=== PATIENT | male | born 2000 | race Caucasian/White ===

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

== ENCOUNTER 2021-09-02 16:47 | Emergency (ER) | payer OTHER ==
[~2021-09-02] VITALS: Ht 170.2 cm; Wt 100.0 kg
[2021-09-02] VITALS (7 sets, daily range): BP systolic 106–125; BP diastolic 43–76
[2021-09-02] MEDS ORDERED: FLEXERIL5 M1 PO (18:46)
[2021-09-02] MEDS ORDERED: IBUPROFEN600 MG PO (18:46)
== END 2021-09-02 19:01 | disposition home or self-care (01) ==
LOC: ED 16:47
DX: S23.3XXA Sprain of ligaments of thoracic spine, initial encounter (principal); X50.0XXA Overexertion from strenuous movement or load, initial encounter

== ENCOUNTER 2021-12-13 05:07 | Emergency (ER) | payer OTHER ==
[~2021-12-13] VITALS: Ht 170.2 cm; Wt 109.0 kg
[~2021-12-13 05:07] MED LIST changes: +FLEXERIL5 M1 PO; +IBUPROFEN600 MG PO
[2021-12-13 05:31] LABS: HEMATOCRIT 46.1 % (39.0-50.0); HEMOGLOBIN 15.4 g/dl (14.0-18.0); IMMATURE GRANULOCYTES 0.9 % (0.0-5.0); MEAN CORPUSCULAR HGB 28.7 pG CALC (26.0-32.0); MEAN CORPUSCULAR HGB CONC 33.4 g/dL CAL (32.0-36.0); NEUT# 8.56 thou/uL (1.82-7.42); RED BLOOD COUNT 5.36 mill/uL (4.70-6.10); RED CELL DISTRI WIDTH 12.9 % (11.5-15.5)
[2021-12-13 05:34] LABS: URINE BILIRUBIN - DIPSTICK NEGATIVE (NEGATIVE); URINE BLOOD DIPSTICK NEGATIVE (NEGATIVE); URINE COLOR YELLOW; URINE GLUCOSE - DIPSTICK NEGATIVE (NEGATIVE); URINE KETONE NEGATIVE (NEGATIVE); URINE LEUK ESTERASE NEGATIVE (NEGATIVE); URINE PH 7.5 (4.5-8.0); URINE PROTEIN - DIPSTICK NEGATIVE (NEG-TRACE); URINE SPECIFIC GRAVITY 1.015; URINE UROBILINOGEN - DIPSTICK 0.2 E.U./dL (0.2)
[2021-12-13 05:39] LABS: URINE NITRITE - DIPSTICK NEGATIVE (Negative)
[2021-12-13 05:48] LABS: ALBUMIN 4.5 g/dL (3.2-5.0); ALKALINE PHOSPHATASE 81 u/l (38-126); ANION GAP 13 (6-22 (CALC)); BILIRUBIN, TOTAL 0.6 mg/dL (0.0-1.4); BUN 19 mg/dL (9-20); BUN/CREATININE RATIO 21 (12-20 (CALC)); CARBON DIOXIDE 25 mmol/l (22-30); CHLORIDE 104 mmol/l (95-108); CREATININE 0.9 mg/dL (0.7-1.3); GFR FOR AFR.AMER. > 60 ML/MIN (>=60 (CALC)); GFR OTHER RACES > 60 ML/MIN (>=60 (CALC)); LIPASE 32 u/l (23-300); MAGNESIUM 2.1 mg/dL (1.6-2.3); SODIUM 139 mmol/l (137-146); TOTAL PROTEIN 7.6 g/dL (6.3-8.2)
[2021-12-13 05:54] LABS: SGOT/AST 96 u/l (17-59)
[2021-12-13] MEDS ORDERED: ZOFRAN4 MG/TAB PO (06:45)
[2021-12-13 06:53] VITALS: BP 112/74
== END 2021-12-13 07:01 | disposition home or self-care (01) ==
LOC: ED 05:07
PROVIDERS: Internal Medicine
DX: R10.13 Epigastric pain (principal); R11.10 Vomiting, unspecified; R74.8 Abnormal levels of other serum enzymes; F31.9 Bipolar disorder, unspecified

== ENCOUNTER 2022-02-27 01:58 | Emergency (ER) | payer OTHER ==
[~2022-02-27] VITALS: Ht 170.2 cm; Wt 109.0 kg
[~2022-02-27 01:58] MED LIST changes: +ZOFRAN4 MG/TAB PO
[2022-02-27] MEDS ORDERED: VOLTAREN75 MG PO (02:15)
[2022-02-27 02:18] VITALS: BP 133/79
== END 2022-02-27 02:32 | disposition home or self-care (01) ==
LOC: ED 01:58
DX: M65.4 Radial styloid tenosynovitis [de Quervain] (principal)

== ENCOUNTER 2022-05-03 05:20 | Emergency (ER) | payer OTHER ==
[~2022-05-03] VITALS: Ht 170.2 cm; Wt 100.0 kg
[~2022-05-03 05:20] MED LIST changes: +VOLTAREN75 MG PO
[2022-05-03 05:41] VITALS: BP 121/78
[2022-05-03 05:46] VITALS: BP 133/67
[2022-05-03 06:01] VITALS: BP 113/55
[2022-05-03 06:39] LABS: URINE BILIRUBIN - DIPSTICK NEGATIVE (NEGATIVE); URINE BLOOD DIPSTICK NEGATIVE (NEGATIVE); URINE COLOR YELLOW; URINE GLUCOSE - DIPSTICK NEGATIVE (NEGATIVE); URINE KETONE NEGATIVE (NEGATIVE); URINE LEUK ESTERASE NEGATIVE (NEGATIVE); URINE PROTEIN - DIPSTICK NEGATIVE (NEG-TRACE); URINE UROBILINOGEN - DIPSTICK 0.2 E.U./dL (0.2)
[2022-05-03 06:40] LABS: URINE NITRITE - DIPSTICK NEGATIVE (Negative)
[2022-05-03 06:45] VITALS: BP 123/82
[2022-05-03 07:33] VITALS: BP 123/82
== END 2022-05-03 07:34 | disposition home or self-care (01) ==
LOC: ED 05:20
PROVIDERS: Emergency Medicine
DX: M47.814 Spondylosis without myelopathy or radiculopathy, thoracic region (principal); M47.816 Spondylosis without myelopathy or radiculopathy, lumbar region; F31.9 Bipolar disorder, unspecified

== ENCOUNTER 2022-07-27 20:05 | Emergency (ER) | payer OTHER ==
[~2022-07-27] VITALS: Ht 170.2 cm; Wt 102.2 kg
[2022-07-27] MEDS ORDERED: VOLTAREN - GENE75 MG PO (21:21)
[2022-07-27 21:25] VITALS: BP 144/75
== END 2022-07-27 21:33 | disposition home or self-care (01) ==
LOC: ED 20:05
DX: S46.911A Strain of unspecified muscle, fascia and tendon at shoulder and upper arm level, right arm, initial encounter (principal); F31.9 Bipolar disorder, unspecified; X50.0XXA Overexertion from strenuous movement or load, initial encounter; Y93.89 Activity, other specified; Y92.89 Other specified places as the place of occurrence of the external cause; Y99.0 Civilian activity done for income or pay

== ENCOUNTER 2022-08-10 06:39 | Emergency (ER) | payer OTHER ==
[~2022-08-10] VITALS: Ht 170.2 cm; Wt 100.0 kg
[~2022-08-10 06:39] MED LIST changes: +VOLTAREN - GENE75 MG PO
[2022-08-10] MEDS ORDERED: BACTRIM DS1 TAB PO (07:49)
[2022-08-10] MEDS ORDERED: OMNI-PAC300 MG PO (07:49)
[2022-08-10 07:57] VITALS: BP 125/76
== END 2022-08-10 08:02 | disposition home or self-care (01) ==
LOC: ED 06:39
DX: L08.82 Omphalitis not of newborn (principal); F31.9 Bipolar disorder, unspecified; F17.200 Nicotine dependence, unspecified, uncomplicated

== ENCOUNTER 2022-11-30 18:01 | Emergency (ER) | payer OTHER ==
[~2022-11-30] VITALS: Ht 170.2 cm; Wt 100.0 kg
[2022-11-30] VITALS (8 sets, daily range): BP systolic 107–123; BP diastolic 53–67
[~2022-11-30 18:01] MED LIST changes: +BACTRIM DS1 TAB PO; +OMNI-PAC300 MG PO
[2022-11-30 18:28] LABS: BASO% 0.4 % (0-3); EOS% 0.8 % (0-8); HEMOGLOBIN 16.6 g/dl (14.0-18.0); IMMATURE GRANULOCYTES 0.4 % (0.0-5.0); LYMPH% 19.6 % (15-41); MEAN CELL VOLUME 84.3 fL CALC (80.0-100.0); MEAN CORPUSCULAR HGB 28.6 pG CALC (26.0-32.0); MEAN CORPUSCULAR HGB CONC 33.9 g/dL CAL (32.0-36.0); MONO% 10.2 % (2-13); NEUT# 12.77 thou/uL (1.82-7.42); NEUT% 68.6 % (42-76); RED BLOOD COUNT 5.81 mill/uL (4.70-6.10)
[2022-11-30 18:51] LABS: ALBUMIN 5.2 g/dL (3.2-5.0); ALKALINE PHOSPHATASE 92 u/l (38-126); BUN 15 mg/dL (9-20); BUN/CREATININE RATIO 14 (12-20 (CALC)); CHLORIDE 99 mmol/l (95-108); CREATININE 1.1 mg/dL (0.7-1.3); ETHYL ALCOHOL 0 mg/dl (0-30); GFR FOR AFR.AMER. > 60 ML/MIN (>=60 (CALC)); GFR OTHER RACES > 60 ML/MIN (>=60 (CALC)); LIPASE 37 u/l (23-300); SODIUM 138 mmol/l (137-146); TOTAL PROTEIN 8.8 g/dL (6.3-8.2)
[2022-11-30 19:01] LABS: ANION GAP 24 (6-22 (CALC)); BILIRUBIN, TOTAL 1.7 mg/dL (0.2-1.3); CARBON DIOXIDE 18 mmol/l (22-30); POTASSIUM 2.7 mmol/l (3.5-5.1)
[2022-11-30 19:08] LABS: SGOT/AST 1361 u/l (17-59)
[2022-11-30] MEDS ORDERED: POT CHLORIDE10 ME5 PO (21:19)
[2022-11-30] MEDS ORDERED: PROTONIX40 M2 PO (21:19)
[2022-11-30] MEDS ORDERED: PROMETHAZINE HY25 M1 PO (21:19)
== END 2022-11-30 21:58 | disposition home or self-care (01) ==
LOC: ED 18:01
PROVIDERS: Nurse Practitioner
DX: K29.21 Alcoholic gastritis with bleeding (principal); E87.6 Hypokalemia; F31.9 Bipolar disorder, unspecified; F17.200 Nicotine dependence, unspecified, uncomplicated
CPT/HCPCS: Q9967; S0164